=== PATIENT | male | born 1990 | race Caucasian/White ===

== ENCOUNTER 2018-02-12 23:40 | Emergency (ER) | payer OTHER ==
[2018-02-12 23:48] VITALS: BP 109/75
[2018-02-13] MEDS ORDERED: AUGMENTIN 875-1 EAC1 PO (01:19)
== END 2018-02-13 01:30 | disposition home or self-care (01) ==
LOC: ED 23:40
DX: S61.220A Laceration with foreign body of right index finger without damage to nail, initial encounter (principal); S61.222A Laceration with foreign body of right middle finger without damage to nail, initial encounter; W31.1XXA Contact with metalworking machines, initial encounter; Y93.89 Activity, other specified; Y92.9 Unspecified place or not applicable; Y99.9 Unspecified external cause status; Z72.0 Tobacco use

== ENCOUNTER → 2018-02-23 | Emergency (ER) | payer OTHER ==
[~2018-02-23] MED LIST: AUGMENTIN 875-1 EAC1 PO
[2018-02-23 14:09] VITALS: BP 120/68
== END ==
LOC: ED 13:51
DX: Z48.02 Encounter for removal of sutures (principal)

== ENCOUNTER 2020-08-28 08:25 | Emergency (ER) | payer OTHER ==
[2020-08-28 10:56] VITALS: BP 120/77
== END 2020-08-28 10:36 | disposition home or self-care (01) ==
LOC: ED 08:25
DX: M25.552 Pain in left hip (principal); M25.522 Pain in left elbow; Z87.891 Personal history of nicotine dependence; W01.0XXA Fall on same level from slipping, tripping and stumbling without subsequent striking against object, initial encounter; Y93.02 Activity, running; Y99.0 Civilian activity done for income or pay